=== PATIENT | female | born 1950 ===

== ENCOUNTER 2018-12-22 13:11 | Emergency (ER) | payer MEDICARE, MEDICAID ==
[2018-12-22 13:11] VITALS: BMI 42.4
[2018-12-22 13:21] VITALS: RESP 20; TEMP 98.6; O2SAT 98
[2018-12-22] MEDS ORDERED: Lidocaine 5% Patch TD STA (13:50)
[2018-12-22] MEDS ORDERED: Tramadol 25 mg PO STA (13:50)
--- NOTE | 2018-12-22 13:53 | C.PDOC ---
History Of Present Illness Patient is a 68 year old female who presents to the ED c/o new onset right knee pain x1 month. Patient is s/p varicose vein tx on the right leg 2 months ago and reports that she was doing well until 2 months ago. Patient is c/o "burning" inside of her right knee, but no associated pain with movement. Patient states she saw her varicose doctor, "he said it's not a varicose vein problem" and was given Mobic without improvement. She also reports seeing her PMD x3 for the same problem who gave her Vosartan gel with limited improvement. No ortho referral given. She denies any swelling or trauma. NEW ONSET R KNEE PAIN X 1 MO. S/P VARICOSE VEIN TX R LEG 2 MO AGO. DOING WELL UNTIL 2 MO AGO. CO "BURNING" INSIDE THE R KNEE. NO ASSOC W MOVEMENT. NO SWELL, TRAUMA. PS SAW VARICOSE DOCTOR, "HE SAID IT'S NOT A VARICOSE VEIN PROBLEM" GIVEN MOBIC BUT NO IMPROVE. SAW PMD 3X FOR SAME, GIVEN VOSARTAN GEL W LIMITED IMPROVE. NO ORTHO REFERRAL GIVEN. EXAM NONTOXIC EXT NON TEND, NO SWELL DEFORM. R KNEE AROM WO DIFF SKIN B/L LE SEVERE SPIDER AND VARICOSE VEINS; NO ERYTHEMA, RASH, LESIONS REMAINDER NEG Time Seen by Provider: 12/22/18 13:24 Chief Complaint (Nursing): Lower Extremity Problem/Injury History Per: Patient History/Exam Limitations: no limitations Onset/Duration Of Symptoms: Days (one month) Current Symptoms Are (Timing): Still Present Recent travel outside of the [place]: No Additional History Per: Patient Past Medical History Reviewed: Historical Data, Nursing Documentation, Vital Signs Vital Signs: Last Vital Signs Temp 98.6 F 12/22/18 13:19 Pulse 64 12/22/18 13:19 Resp 20 12/22/18 13:19 BP 168/90 H 12/22/18 13:19 Pulse Ox 98 12/22/18 13:19 Primary Care Provider: Lali Ba V - Medical History PMH: Anxiety, Arthritis, Asthma (never been hospitalzed, does not use inhaler), Gastritis, HTN, Hypercholesterolemia, TIA (2008) Denies: Chronic Kidney Disease Surgical History: No Surg Hx - [facility] Procedures CYSTOMETROGRAM (09/20/14) CYSTOSCOPY NEC (09/20/14) THERAPEUT DISTENT BLADD (09/20/14) Family History: States: No Known Family Hx - Social History Hx Alcohol Use: No Hx Substance Use: No - Immunization History Hx Tetanus Toxoid Vaccination: No Hx Influenza Vaccination: No Hx Pneumococcal Vaccination: No Review Of Systems Except As Marked, All Systems Reviewed And Found Negative. Musculoskeletal: Positive for: Leg Pain (right knee "burning") Neurological: Negative for: Weakness, Numbness Physical Exam - Physical Exam Appears: Non-toxic, No Acute Distress Skin: Warm, Dry, Other (B/L LE SEVERE SPIDER AND VARICOSE VEINS; NO ERYTHEMA, RASH, LESIONS) Head: Atraumatic, Normacephalic Eye(s): bilateral: Normal Inspection Chest: Symmetrical, No Deformity Cardiovascular: Rhythm Regular, No Murmur Respiratory: Other (NARD) Extremity: Normal ROM (R KNEE AROM WO DIFF), No Tenderness (right knee), Capillary Refill (less than 2 seconds), No Deformity (right knee), No Swelling (right knee) Pulses: Left Dorsalis Pedis: Normal, Right Dorsalis Pedis: Normal Neurological/Psych: Oriented x3, Normal Speech, Normal Cognition, Normal Motor, Normal Sensation, Normal Reflexes ED Course And Treatment O2 Sat by Pulse Oximetry: 98 (on RA) Pulse Ox Interpretation: Normal - Other Rad R KNEE X-Ray: Interpreted by Me (NEG) - CT Scan/US VENOUS Other Rad Studies (CT/US): Radiology Report Reviewed (NEG) Progress Note: Plan: Xray Rt Knee. Venous Duplex. Tylenol 650mg PO. Toradol 60mg IM. Lidoderm 2ea TD. Ultram 25mg PO Disposition Counseled Patient/Family Regarding: Studies Performed, Diagnosis, Need For Followup, Rx Given - Disposition Referrals: Gato Vasquez III, MD [Staff Provider] - Disposition: HOME/ ROUTINE Disposition Time: 15:00 Condition: IMPROVED Prescriptions: Acetaminophen [Tylenol Extra Strength] 2 tab PO Q6 #30 tablet Gabapentin [Neurontin] 300 mg PO TID #30 cap Ibuprofen [Motrin] 600 mg PO Q6 #30 tab Lidocaine 5% [Lidoderm] 1 ea TD PRN PRN #10 patch PRN Reason: Pain, Moderate (4-7) Instructions: Chronic Knee Pain (DC) Forms: [employer] (Swedish) Print Language: CITIZ[place] - Clinical Impression Clinical Impression: Chronic knee pain - Scribe Statement The provider has reviewed the documentation as recorded by the Imtiazibrajwinder Sharif All medical record entries made by the Imtiazibrajwinder were at my direction and personally dictated by me. I have reviewed the chart and agree that the record accurately reflects my personal performance of the history, physical exam, medical decision making, and the department course for this patient. I have also personally directed, reviewed, and agree with the discharge instructions and disposition.
[2018-12-22] MEDS ORDERED: Lidocaine 5% Patch TD ONE (14:01)
[2018-12-22 15:14] VITALS: BP 107/73; PULSE 58
--- NOTE | 2018-12-22 15:16 | RAD ---
Date of service: 12/22/2018 PROCEDURE: Right Knee Radiographs. HISTORY: PAIN COMPARISON: 12/23/2012 TECHNIQUE: 2 views obtained. FINDINGS: BONES: No fracture quadriceps insertional enthesophyte. JOINTS: Minimal degenerative type joint-space narrowing tricompartmental. Lateral tibial spine spurring. JOINT EFFUSION: None. OTHER FINDINGS: Lateral apparent subcutaneous varicosities-correlate clinically. IMPRESSION: No fracture or lytic lesion. Mild arthrosis
--- NOTE | 2018-12-24 21:35 | VASCLAB ---
Date of service: 12/22/2018 PROCEDURE: Right Lower Extremity Venous Duplex Exam. HISTORY: PAIN RO DVT PRIORS: None. TECHNIQUE: Right common femoral, femoral, popliteal and posterior tibial, peroneal and great saphenous veins were evaluated. Flow was assessed with color Doppler, compressibility, assessment of phasic flow and augmentation response. Report prepared by Triston La, PRADIP, RVT FINDINGS: RIGHT: 1. Common Femoral Vein: 1.1. Compressibility - Fully compressible: Thrombus - None: Flow - Phasic: Augmentation -Normal: Reflux - None. 2. Femoral Vein: 2.1. Compressibility - Fully compressible: Thrombus - None: Flow - Phasic: Augmentation -Normal: Reflux - None. 3. Popliteal Vein: 3.1. Compressibility - Fully compressible: Thrombus - None: Flow - Phasic: Augmentation -Normal: Reflux - None. 4. Posterior Tibial Vein: 4.1. Compressibility - Fully compressible: Thrombus - None: Flow - Phasic: Augmentation -Normal: Reflux - None. 5. Peroneal Vein: 5.1. Compressibility - Fully compressible: Thrombus - None: Flow - Phasic: Augmentation -Normal: Reflux - None. 6. Great Saphenous Vein: 6.1. Compressibility - Fully compressible: Thrombus -None: Flow - : Augmentation - : Reflux - . OTHER FINDINGS: IMPRESSION: No evidence of deep or superficial vein thrombosis of the right lower extremity with excellent venous flow. Normal valve function noted of the right side. Normal venous flow noted in the left common femoral vein.
== END 2018-12-22 15:28 | disposition home or self-care (01) ==
LOC: C.ER 13:11
DX: M25.561 Pain in right knee (principal); G89.29 Other chronic pain; I10 Essential (primary) hypertension; Z86.73 Personal history of transient ischemic attack (TIA), and cerebral infarction without residual deficits; Z87.891 Personal history of nicotine dependence
CPT/HCPCS: 73562; 93971; 96372; 99284; J1885